=== PATIENT | female | born 1960 | race Caucasian/White ===

== ENCOUNTER 2021-05-11 12:40 | Outpatient (REF) | payer OTHER, SELFPAY ==
[2021-05-11 13:58] LABS: Abs Immature Grans 0.02 10^3/uL (0.0-0.06); Absolute Basophil Count 0.07 10^3/uL (0.0-0.2); Absolute Eosinophil Count 0.23 10^3/uL (0.0-0.7); Absolute Lymphocyte Count 2.34 10^3/uL (1.2-3.4); Absolute Monocyte Count 0.79 10^3/uL (0.1-0.8); Absolute Neutrophil Count 5.61 10^3/uL (1.2-6.7); Basophils % 0.8; Eosinophils % 2.5; HCT 42.2 % (36.0-46.0); HGB 13.5 g/dL (11.2-15.7); Immature Grans % 0.2; Lymphocytes % 25.8; MCH 29.3 pg (27.0-33.0); MCV 91.7 fL (80-95); MPV 10.7 fL (8.0-11.0); Monocytes % 8.7; Nucleated RBC 0 %; RDW 15.7 % (11.7-14.6); RDW-SD 52.5 fL; WBC 9.06 10^3/uL (4.4-10.8)
[2021-05-11 14:02] LABS: ESR 38 mm/hr (0-30)
[2021-05-11 14:09] LABS: Platelet Count 611 10^3/uL (130-400)
[2021-05-11 14:12] LABS: ALT 18 U/L (14-59); AST 12 U/L (15-37); Albumin 3.7 g/dL (3.4-5.0); Alkaline Phosphatase 104 U/L (46-116); Anion Gap 8.5 mmol/L (3-11); BUN 13 mg/dL (7-18); Bilirubin, Total 0.4 mg/dL (0.2-1.0); C-Reactive Protein 3.49 mg/dL (0.0-0.3); CO2 28.5 mmol/L (21.0-32.0); CREATININE 0.9 mg/dL (0.55-1.02); Calcium 9.4 mg/dL (8.5-10.1); Chloride 106 mmol/L (98-107); Glucose 110 mg/dL (74-106); Potassium 4.6 mmol/L (3.5-5.1); Sodium 143 mmol/L (136-145); Total Protein 7.4 g/dL (6.4-8.2)
[2021-05-13 12:59] LABS: COVID-19 RT-PCR UVMMC Result Negative (Negative)
== END 2021-05-11 12:41 | disposition home or self-care (01) ==
LOC: LBN 12:40
PROVIDERS: Visit Provider Physician Assistant Medical
DX: M06.9 Rheumatoid arthritis, unspecified (principal); R05 Cough; Z20.822 Contact with and (suspected) exposure to COVID-19
CPT/HCPCS: 80053; 85652; U0003; 85025; 86140